=== PATIENT | female | born 1980 | race Caucasian/White ===

== ENCOUNTER 2016-07-29 18:38 | Observation (INO) | payer MEDICAID ==
[2016-07-29] MEDS ORDERED: Sodium Chloride 0.9% 1,000 ML IV STA (18:47)
[2016-07-29 19:03] LABS: BASO # 0.1 K/uL (0.0-0.2); BASO % 0.7 % (0.0-2.0); EOS # 0.1 K/uL (0.0-0.7); EOS % 0.3 % (0.0-4.0); HEMATOCRIT 36.1 % (34.0-47.0); LYMPH % 29.1 % (20.0-40.0); MEAN CELL VOLUME 96.5 fl (81.0-99.0); MEAN CORPUSCULAR HEMOGLOBIN 30.1 pg (27.0-31.0); MEAN CORPUSCULAR HGB CONC 31.2 g/dL (33.0-37.0); MEAN PLATELET VOLUME 8.9 fl (7.2-11.7); MONO # 1.4 K/uL (0.0-0.8); MONO % 8.2 % (0.0-10.0); NEUT # 10.5 K/uL (1.8-7.0); NEUT % 61.7 % (50.0-75.0); RED CELL DISTRIBUTION WIDTH 15.4 % (11.5-14.5); WHITE BLOOD COUNT 17.1 K/uL (4.8-10.8)
[2016-07-29 19:16] LABS: ALB/GLOB RATIO 1.7 (1.0-2.1); ALCOHOL SERUM < 10 mg/dl (0-10); ALKALINE PHOSPHATASE 47 U/L (38-126); ALT/SGPT 21 U/L (9-52); AST/SGOT 35 U/L (14-36); BILIRUBIN,TOTAL 0.4 mg/dl (0.2-1.3); BLOOD UREA NITROGEN 8 mg/dl (7-17); CALCIUM 9.8 mg/dL (8.4-10.2); CARBON DIOXIDE 21 mmol/L (22-30); CHLORIDE 103 mmol/L (98-107); GFR AFRICAN-AMERICAN > 60; GLUCOSE,RANDOM 180 mg/dL (65-105); PHOSPHOROUS 3.5 mg/dl (2.5-4.5); POTASSIUM 3.6 MMOL/L (3.6-5.0); SODIUM 145 mmol/l (132-148); TOTAL PROTEIN 8.6 G/DL (6.3-8.2)
[2016-07-29 19:27] LABS: VALPROIC ACID < 10.0 ug/mL (50.0-100.0)
--- NOTE | 2016-07-29 20:08 | CT ---
EXAM: CT Head Without Intravenous Contrast CLINICAL HISTORY: 35 years old, female; Signs and symptoms; Other: Poss seizure; Additional info: AMS seizure TECHNIQUE: Axial computed tomography images of the head/brain without intravenous contrast. This CT exam was performed using one or more of the following dose reduction techniques: automated exposure control, adjustment of the mA and/or kV according to patient size, and/or use of iterative reconstruction technique. Coronal and sagittal reformatted images were created and reviewed. EXAM DATE/TIME: 07/29/2016 6:46 PM COMPARISON: Prior head CT of 09/22/2012 FINDINGS: BRAIN: No significant acute abnormality identified. No acute hemorrhage seen within the brain. No acute extra-axial fluid collections visualized. No evidence of significant mass effect within the brain. Normal velasquez-white matter differentiation. VENTRICLES: No evidence of significant hydrocephalus. BONES/JOINTS: No acute fractures or other acute bony abnormality noted. SOFT TISSUES: No acute abnormality of the visualized soft tissues is seen. SINUSES: Visualized paranasal sinuses appear clear. MASTOID AIR CELLS: Mastoid air cells appear clear. IMPRESSION: - No acute findings seen within the brain. - See above for remaining findings.
--- NOTE | 2016-07-29 20:26 | ED PDOC ---
HPI: Seizure Time Seen by Provider: 07/29/16 18:50 Chief Complaint (Nursing): Altered Mental Status Chief Complaint (Provider): seizures History Per: EMS History/Exam Limitations: intoxication Additional Complaint(s): Pt brought in agitated and violent. Yelling and cursing nonsensically. Per EMS, pt has 3 episodes of possible seizure, gen tonic clonic, just prior to arrival, all within about 20 minutes of each other, lasting ~2-3 min, but waking up agitated and angry and fighting them almost immediately after the 2 episodes witnessed by them. Unknown history. Past Medical History Reviewed: Unable To Obtain (Obtained from previous charts) Vital Signs: Last Vital Signs Temp 98.3 F 07/30/16 01:15 Pulse 76 07/30/16 01:15 Resp 14 07/30/16 01:15 BP 96/56 L 07/30/16 01:15 Pulse Ox 98 07/30/16 14:52 - Medical History PMH: Anxiety, Bipolar Disorder, Depression - Family History Family History: States: Unknown Family Hx - Immunization History Hx Tetanus Toxoid Vaccination: No Hx Influenza Vaccination: No Hx Pneumococcal Vaccination: No - Home Medications Home Medications: Ambulatory Orders Medication Instructions Recorded Abilify 25 mg PO DAILY 02/21/13 SEROquel 200 mg PO DAILY 02/21/13 Topamax 02/21/13 Wellbutrin 02/21/13 - Allergies Allergies/Adverse Reactions: Allergies Allergy/AdvReac Type Severity Reaction Status Date / Time No Known Allergies Allergy Verified 07/29/16 18:52 Review of Systems Review Of Systems: ROS cannot be obtained secondary to pt's inabilty to answer questions. Physical Exam - Reviewed Nursing Documentation Reviewed: Yes Vital Signs Reviewed: Yes - Physical Exam Appears: Positive for: In Acute Distress (agitated and violent) Head Exam: Positive for: ATRAUMATIC, NORMOCEPHALIC Skin: Positive for: Warm, Dry Eye Exam: Positive for: EOMI, PERRL, Conjunctival injection ENT: Positive for: Other (tacky muc membranes) Neck: Positive for: Supple, Trachea Midline Cardiovascular/Chest: Positive for: Chest Non Tender, Edema, Tachycardia. Negative for: Murmur Respiratory: Negative for: Accessory Muscle Use, Wheezing, Respiratory Distress Gastrointestinal/Abdominal: Positive for: Soft. Negative for: Distended Back: Negative for: Normal Inspection Extremity: Positive for: Normal ROM. Negative for: Deformity Neurologic/Psych: Positive for: Alert (and agitated and violent), Mood/Affect ( extremely agitated, poor concentration, poor thought process, pressured speech, nonsensical conversation). Negative for: Oriented, Motor/Sensory Deficits, Facial Droop - Laboratory Results Result Diagrams: 07/29/16 18:50 07/29/16 18:50 - ECG ECG: Positive for: Interpreted By Ut ECG Rhythm: Positive for: Normal QRS, Normal ST Segment, Sinus Rhythm O2 Sat by Pulse Oximetry: 98 Pulse Ox Interpretation: Normal - Progress ED Course And Treament: On arrival, pt was so agitated and violent, required physical control and medication for acute psychosis. 1:1, Ativan, and 4pt restrains ordered Pt placed in observation due to possible intoxication (drug or alcohol) and encephalopathy and need to be medicated to sedation. Goal would be for reassessments and appropriate disposition based on changes of mental status. Reviewed previous charts. There appears to be h/o drug abuse. 9p Pt sleeping comfortably. Restraints had been removed. Accession No. : [id number] Patient Name / ID : WICHO DURAN / [id number] Exam Date : 07/29/2016 19:40:28 ( Approved ) Study Comment : Sex / Age : F / 35Y Creator : Fouzia Camacho MD Dictator : Plate Finisher : Web Content Specialist : Fouzia Camacho MD Approver2 : Report Date : 07/29/2016 20:07:00 My Comment : [facility] Division of Radiology [address] [place] [address] Tel. no. Patient Name: RENEE SANDS Pt. [address]: [address] [place] [address]. Rec #: [id number] [place] [address]: Jaun MONTANO ,Madina Walsh Pt Order Location: [facility] : 1980 Female Age: 35 Order #: [id number] Reason for exam: ams seizure CT Scan HEAD W/O CONTRAST Exam Date: 07/29/16 This imaging exam was performed at [facility] EXAM: CT Head Without Intravenous Contrast CLINICAL HISTORY: 35 years old, female; Signs and symptoms; Other: Poss seizure; Additional info: AMS seizure TECHNIQUE: Axial computed tomography images of the head/brain without intravenous contrast. This CT exam was performed using one or more of the following dose reduction techniques: automated exposure control, adjustment of the mA and/or kV according to patient size, and/or use of iterative reconstruction technique. Coronal and sagittal reformatted images were created and reviewed. EXAM DATE/TIME: 07/29/2016 6:46 PM COMPARISON: Prior head CT of 09/22/2012 FINDINGS: BRAIN: No significant acute abnormality identified. No acute hemorrhage seen within the brain. No acute extra-axial fluid collections visualized. No evidence of significant mass effect within the brain. Normal velasquez-white matter differentiation. VENTRICLES: No evidence of significant hydrocephalus. BONES/JOINTS: No acute fractures or other acute bony abnormality noted. SOFT TISSUES: No acute abnormality of the visualized soft tissues is seen. SINUSES: Visualized paranasal sinuses appear clear. MASTOID AIR CELLS: Mastoid air cells appear clear. IMPRESSION: - No acute findings seen within the brain. - See above for remaining findings. Dictated By: Fouzia Camacho MD Dictated Date/Time: 07/29/162006 Signed By: Fouzia Camacho MD Date Signed: 2006 Transcribed By: MILLIE Transcribe Date/Time : 07/29/162006 [facility]/ROBERTD 1130p Labs c/w seizure and drug abuse. Pt sleeping and arousable to stimuli 12am Endorsed to Dr Quiroz pending sobriety and final ER disposition - Critical Care Total Time (In Min): 30 Documented Critical Care: Time excludes all time spent performint seperately billable procedures Disposition - Clinical Impression Clinical Impression: Polysubstance abuse - Disposition Disposition: Transfer of Care Disposition Time: 19:00 Condition: STABLE Patient Signed Over To: Rick King
[2016-07-29] MEDS ORDERED: Dextrose 5%/Lactated Ringer's 1,000 ML IV SCH (21:30)
--- NOTE | 2016-07-30 00:13 | ED PDOC ---
- Laboratory Results Result Diagrams: 07/29/16 18:50 07/29/16 18:50 - ECG O2 Sat by Pulse Oximetry: 98 Medical Decision Making Medical Decision Making: Patient s/o from Dr. Zamorano at 0000 pending labs and re-eval. 0400: Patient AAOx3 ambulating with steady gait and clear speech and stable for d/c. Dx: polysubstance abuse stable Scribe Attestation: Documented by Kimber Yeung acting as a scribe for Rick King MD. Provider Scribe Attestation: All medical record entries made by the Scribe were at my direction and personally dictated by me. I have reviewed the chart and agree that the record accurately reflects my personal performance of the history, physical exam, medical decision making, and the department course for this patient. I have also personally directed, reviewed, and agree with the discharge instructions and disposition. Disposition - Clinical Impression Clinical Impression: Polysubstance abuse - POA Present On Arrival: None - Disposition Disposition: Routine/Home Disposition Time: 18:48 Condition: STABLE
[2016-07-30 01:16] VITALS: BP 96/56; PULSE 76; RESP 14; TEMP 98.3
[2016-07-30 02:10] VITALS: O2SAT 98
--- NOTE | 2016-07-30 15:38 | CARD ---
APPROVED REPORT EKG Measurement Heart [id number] [place] 122P13 [id number] <Conclusion> Normal sinus rhythm Normal ECG
== END 2016-07-30 03:46 | disposition home or self-care (01) ==
LOC: H.ER 18:38 → H.EROBSV 18:48
PROVIDERS: ADMIT Emergency Medicine; ATTEND Emergency Medicine
DX: R56.9 Unspecified convulsions (principal); F19.10 Other psychoactive substance abuse, uncomplicated; F31.9 Bipolar disorder, unspecified; F32.9 Major depressive disorder, single episode, unspecified; F41.9 Anxiety disorder, unspecified

== ENCOUNTER 2016-11-04 16:19 | Observation (INO) | payer MEDICAID ==
[2016-11-04 16:27] VITALS: BP 145/93; PULSE 119; RESP 16; TEMP 98; O2SAT 100
--- NOTE | 2016-11-04 16:45 | ED PDOC ---
HPI: Psych/Substance Abuse Time Seen by Provider: 11/04/16 16:33 Chief Complaint (Nursing): Altered Mental Status Chief Complaint (Provider): altered mental status History Per: Other (police ) History/Exam Limitations: no limitations Additional Complaint(s): Dede Aldana is a 35 year old female, with a previous medical history of bipolar disorder and depression, who presents to the ED via police after they found her on the ground shaking and appeared to be intoxicated. Patient admits to using PCP but denies any other medical complaints. PMD: none provided Past Medical History Reviewed: Historical Data, Nursing Documentation, Vital Signs Vital Signs: Last Vital Signs Temp 98.0 F 11/04/16 16:21 Pulse 119 H 11/04/16 16:21 Resp 16 11/04/16 16:21 BP 145/93 H 11/04/16 16:21 Pulse Ox 100 11/04/16 16:21 - Medical History PMH: Anxiety, Bipolar Disorder, Depression - Family History Family History: States: Unknown Family Hx - Immunization History Hx Tetanus Toxoid Vaccination: No Hx Influenza Vaccination: No Hx Pneumococcal Vaccination: No - Home Medications Home Medications: Ambulatory Orders Medication Instructions Recorded Abilify 25 mg PO DAILY 02/21/13 SEROquel 200 mg PO DAILY 02/21/13 Topamax 02/21/13 Wellbutrin 02/21/13 - Allergies Allergies/Adverse Reactions: Allergies Allergy/AdvReac Type Severity Reaction Status Date / Time No Known Allergies Allergy Verified 11/04/16 16:21 Review of Systems ROS Statement: Except As Marked, All Systems Reviewed And Found Negative ( patient denies any medical complaints) Physical Exam - Reviewed Nursing Documentation Reviewed: Yes Vital Signs Reviewed: Yes - Physical Exam Appears: Positive for: Well, Non-toxic, No Acute Distress Head Exam: Positive for: ATRAUMATIC, NORMAL INSPECTION, NORMOCEPHALIC Skin: Positive for: Normal Color, Warm, DRY Eye Exam: Positive for: EOMI, Normal appearance, PERRL ENT: Positive for: Normal ENT Inspection Neck: Positive for: Normal, Painless ROM Cardiovascular/Chest: Positive for: Regular Rate, Rhythm, Tachycardia Respiratory: Positive for: CNT, Normal Breath Sounds Gastrointestinal/Abdominal: Positive for: Normal Exam, Bowel Sounds, Soft Back: Positive for: Normal Inspection Extremity: Positive for: Normal ROM Neurologic/Psych: Positive for: Alert, Oriented, Mood/Affect (agitated and confused ) - Laboratory Results Result Diagrams: 11/04/16 16:57 11/04/16 16:57 - ECG O2 Sat by Pulse Oximetry: 100 (RA) Pulse Ox Interpretation: Normal Medical Decision Making Medical Decision Making: Initial Impression: substance abuse and possible seizure related to PCP use. Initial Plan: * labs * EKG * CT head w/o contrast * alcohol serum * urine drug screen * HCG qualitative * reevaluation 18:00 Patient placed in ED observation to monitor for substance sobriety. Scribe Attestation: Documented by Pati Reyes and Julieta Cavazos, acting as scribes for Dr. Apurva Sampson MD. Provider Scribe Attestation: All medical record entries made by the Scribe were at my direction and personally dictated by me. I have reviewed the chart and agree that the record accurately reflects my personal performance of the history, physical exam, medical decision making, and the department course for this patient. I have also personally directed, reviewed, and agree with the discharge instructions and disposition. ED OBSERVATION Date of observation admission: 11/04/16 Time of observation admission: 18:00 - Observation admission statement Patient is being placed in observation because:: Substance abuse - Goals of Observation Goals of observation are:: Monitor for substance sobriety - Progress Note Progress Note: 11/04/16 18:41 Pt is stable. Sleeping comfortably. No complains. Tachycardia improved. Disposition - Clinical Impression Clinical Impression: Polysubstance abuse, Altered mental status - Patient ED Disposition Is Patient to be Admitted: Transfer of Care - Disposition Disposition: Transfer of Care Disposition Time: 19:00 Condition: FAIR Patient Signed Over To: Taiwo Wynne
[2016-11-04 17:04] LABS: BASO % 0.3 % (0.0-2.0); EOS % 0.1 % (0.0-4.0); HEMATOCRIT 38.1 % (34.0-47.0); LYMPH # 3.1 K/uL (1.0-4.3); LYMPH % 18.8 % (20.0-40.0); MEAN CELL VOLUME 95.4 fl (81.0-99.0); MEAN CORPUSCULAR HGB CONC 31.4 g/dL (33.0-37.0); MEAN PLATELET VOLUME 9.3 fl (7.2-11.7); MONO # 0.5 K/uL (0.0-0.8); MONO % 3.2 % (0.0-10.0); NEUT # 12.7 K/uL (1.8-7.0); NEUT % 77.6 % (50.0-75.0); RED CELL DISTRIBUTION WIDTH 15.5 % (11.5-14.5); WHITE BLOOD COUNT 16.3 K/uL (4.8-10.8)
[2016-11-04 17:14] LABS: ALB/GLOB RATIO 1.5 (1.0-2.1); ALCOHOL SERUM < 10 mg/dl (0-10); ALKALINE PHOSPHATASE 46 U/L (38-126); ALT/SGPT 16 U/L (9-52); AST/SGOT 21 U/L (14-36); BILIRUBIN,TOTAL 0.5 mg/dl (0.2-1.3); BLOOD UREA NITROGEN 10 mg/dl (7-17); CALCIUM 10.3 mg/dL (8.4-10.2); CARBON DIOXIDE 15 mmol/L (22-30); CHLORIDE 108 mmol/L (98-107); GFR AFRICAN-AMERICAN > 60; GLUCOSE,RANDOM 126 mg/dL (65-105); POTASSIUM 4.3 MMOL/L (3.6-5.0); SODIUM 149 mmol/l (132-148); TOTAL PROTEIN 8.4 G/DL (6.3-8.2)
[2016-11-04] MEDS ORDERED: Sodium Chloride 0.9% 1,000 ML IV STA (18:23)
--- NOTE | 2016-11-04 20:13 | ED PDOC ---
- Laboratory Results Result Diagrams: 11/04/16 16:57 11/04/16 16:57 - ECG O2 Sat by Pulse Oximetry: 100 (RA) Pulse Ox Interpretation: Normal Medical Decision Making Medical Decision Makin:00 Patient signed out to me from Dr. Sampson. Substance sobriety pending. Disposition Counseled Patient/Family Regarding: Diagnosis - Clinical Impression Clinical Impression: Polysubstance abuse, Altered mental status - POA Present On Arrival: None - Disposition Disposition: Routine/Home Disposition Time: 21:30 Condition: FAIR ED OBSERVATION Date of observation admission: 11/04/16 Time of observation admission: 19:00 - Observation admission statement Patient is being placed in observation because:: Substance abuse - Goals of Observation Goals of observation are:: Substance sobriety - Progress Note Progress Note: 11/04/16 20:15 Patient's condition remains stable. Pending CT scan and clinical sobriety. 11/04/16 21:30 Patient is awake and alert. Stable for discharge. Scribe Attestation: Documented by Julieta Cavazos, acting as a scribe for Taiwo Wynne MD. Provider Scribe Attestation: All medical record entries made by the Scribe were at my direction and personally dictated by me. I have reviewed the chart and agree that the record accurately reflects my personal performance of the history, physical exam, medical decision making, and the department course for this patient. I have also personally directed, reviewed, and agree with the discharge instructions and disposition. 11/04/16 21:36
--- NOTE | 2016-11-04 20:15 | CT ---
EXAM: CT Head Without Intravenous Contrast EXAM DATE/TIME: 11/04/2016 4:37 PM CLINICAL HISTORY: 35 years old, female; Signs and symptoms; Other: Possible seizure TECHNIQUE: Axial computed tomography images of the head/brain without intravenous contrast. All CT scans at this facility use one or more dose reduction techniques, viz.: automated exposure control; ma/kV adjustment per patient size (including targeted exams where dose is matched to indication; i.e. head); or iterative reconstruction technique. Coronal and sagittal reformatted images were created and reviewed. COMPARISON: Prior head CT of 07/29/2016 FINDINGS: LIMITATIONS: Mild streak/motion artifact. BRAIN: No significant acute abnormality identified. No acute hemorrhage seen within the brain. No acute extra-axial fluid collections visualized. No evidence of significant mass effect within the brain. Normal velasquez-white matter differentiation. VENTRICLES: No evidence of significant hydrocephalus. BONES/JOINTS: No acute fractures or other acute bony abnormality noted. SOFT TISSUES: No acute abnormality of the visualized soft tissues is seen. SINUSES: Visualized paranasal sinuses appear clear. MASTOID AIR CELLS: Mastoid air cells appear clear. IMPRESSION: - No acute findings seen within the brain. - See above for remaining findings.
--- NOTE | 2016-11-05 10:43 | CARD ---
APPROVED REPORT EKG Measurement Heart [id number] [place] 118P41 [id number] <Conclusion> Sinus tachycardia Otherwise normal ECG
== END 2016-11-04 21:34 | disposition home or self-care (01) ==
LOC: H.ER 16:19 → H.EROBSV 18:05
PROVIDERS: ADMIT Emergency Medicine; ATTEND Emergency Medicine
DX: F16.129 Hallucinogen abuse with intoxication, unspecified (principal); F31.9 Bipolar disorder, unspecified; F41.9 Anxiety disorder, unspecified
CPT/HCPCS: 70450; 80053; 80320; 80324; 80345; 80346; 80349; 80353; 80358; 80361; 81025; 82948; 83992; 84703; 85025; 93005; 96374; 99285; G0378; J2060; J7040

== ENCOUNTER 2016-12-23 18:18 | Emergency (ER) | payer MEDICAID ==
[2016-12-23 18:28] VITALS: TEMP 98
--- NOTE | 2016-12-23 19:01 | ED PDOC ---
HPI: Psych/Substance Abuse Time Seen by Provider: 12/23/16 18:29 Chief Complaint (Nursing): Substance Abuse Chief Complaint (Provider): ?substance abuse Additional Complaint(s): 36yo F in ED for eval -was [place] Police [place] with [place] and falling to floor without witnessed head injury-admits in ER that she took PCP and does so regularly. PT admits only to PCP use. denies alcohol abuse . denies head injury Past Medical History Reviewed: Historical Data, Nursing Documentation, Vital Signs Vital Signs: Last Vital Signs Temp 98.0 F 12/23/16 18:25 Pulse 98 H 12/23/16 18:25 Resp 16 12/23/16 18:25 BP Pulse Ox 100 12/23/16 18:25 - Medical History PMH: Anxiety, Bipolar Disorder, Depression - Family History Family History: States: Unknown Family Hx - Immunization History Hx Tetanus Toxoid Vaccination: No Hx Influenza Vaccination: No Hx Pneumococcal Vaccination: No - Home Medications Home Medications: Ambulatory Orders Medication Instructions Recorded Abilify 25 mg PO DAILY 02/21/13 SEROquel 200 mg PO DAILY 02/21/13 Topamax 02/21/13 Wellbutrin 02/21/13 - Allergies Allergies/Adverse Reactions: Allergies Allergy/AdvReac Type Severity Reaction Status Date / Time No Known Allergies Allergy Verified 11/04/16 16:21 Review of Systems ROS Statement: Except As Marked, All Systems Reviewed And Found Negative Neurological: Negative for: Headache Psych: Negative for: Depression, Psychosis, Suicidal ideation Physical Exam - Reviewed Nursing Documentation Reviewed: Yes Vital Signs Reviewed: Yes - Physical Exam Appears: Positive for: Well (slurred speech, unstable gait. ), Non-toxic, No Acute Distress Head Exam: Positive for: ATRAUMATIC, NORMAL INSPECTION, NORMOCEPHALIC Skin: Positive for: Normal Color, Warm, DRY Eye Exam: Positive for: Normal appearance, EOMI, PERRL Cardiovascular/Chest: Positive for: Regular Rate, Rhythm Respiratory: Positive for: CNT, Normal Breath Sounds Gastrointestinal/Abdominal: Positive for: Normal Exam, Bowel Sounds, Soft Neurologic/Psych: Positive for: Alert, Oriented, Gait (unstable, slow with response to commands but answeres approprietly ) - ECG O2 Sat by Pulse Oximetry: 100 - Progress ED Course And Treament: Orders Category Date Time Status ALCOHOL SERUM Stat Chem 12/23/16 19:34 Uncollected COMP METABOLIC PANEL Stat Chem 12/23/16 19:34 Uncollected DRUG SCREEN, URINE Stat Chem 12/23/16 19:34 Uncollected CBC (WITH DIFFERENTIAL) Stat NADEEM 12/23/16 19:34 Uncollected Disposition - Disposition Forms: [employer] (Lao)
[2016-12-23 21:07] LABS: BASO # 0.1 K/uL (0.0-0.2); BASO % 0.6 % (0.0-2.0); EOS # 0.1 K/uL (0.0-0.7); EOS % 0.6 % (0.0-4.0); HEMATOCRIT 32.6 % (34.0-47.0); LYMPH # 2.8 K/uL (1.0-4.3); LYMPH % 26.5 % (20.0-40.0); MEAN CELL VOLUME 93.9 fl (81.0-99.0); MEAN CORPUSCULAR HEMOGLOBIN 30.2 pg (27.0-31.0); MEAN CORPUSCULAR HGB CONC 32.1 g/dL (33.0-37.0); MEAN PLATELET VOLUME 8.3 fl (7.2-11.7); MONO # 0.7 K/uL (0.0-0.8); MONO % 6.7 % (0.0-10.0); NEUT # 7.1 K/uL (1.8-7.0); NEUT % 65.6 % (50.0-75.0); RED CELL DISTRIBUTION WIDTH 16.6 % (11.5-14.5); WHITE BLOOD COUNT 10.8 K/uL (4.8-10.8)
[2016-12-23 21:41] LABS: ALB/GLOB RATIO 1.5 (1.0-2.1); ALCOHOL SERUM < 10 mg/dl (0-10); ALKALINE PHOSPHATASE 44 U/L (38-126); ALT/SGPT 33 U/L (9-52); AST/SGOT 39 U/L (14-36); BILIRUBIN,TOTAL 0.4 mg/dl (0.2-1.3); BLOOD UREA NITROGEN 13 mg/dl (7-17); CALCIUM 9.6 mg/dL (8.4-10.2); CARBON DIOXIDE 28 mmol/L (22-30); CHLORIDE 104 mmol/L (98-107); GFR AFRICAN-AMERICAN > 60; GLUCOSE,RANDOM 99 mg/dL (65-105); POTASSIUM 3.8 MMOL/L (3.6-5.0); SODIUM 143 mmol/l (132-148); TOTAL PROTEIN 7.8 G/DL (6.3-8.2)
--- NOTE | 2016-12-24 02:56 | ED PDOC ---
- Laboratory Results Result Diagrams: 12/23/16 21:04 12/23/16 21:04 - ECG O2 Sat by Pulse Oximetry: 98 - Progress ED Course And Treament: Case endorsed to race and sports book writer from Alan OATES pending labs, re-eval 21:30 Patient awake, no acute complaints 23:00 Patient awake, no acute complaints [place]/juice given 12/24/16 00:30 Patient awake, no acute complaints 2:00 Patient awake, no acute complaints 3:00 Patient requesting to leave, ambulating steady gait. No acute complaints. Stable for discharge Disposition - Clinical Impression Clinical Impression: PCP abuse - POA Present On Arrival: None - Disposition Disposition: Routine/Home Disposition Time: 02:56 Condition: STABLE Instructions: Polysubstance Abuse (ED)
[2016-12-24 03:15] VITALS: BP 117/84; PULSE 80; RESP 18; O2SAT 100
== END 2016-12-24 03:10 | disposition home or self-care (01) ==
LOC: H.ER 18:18
DX: F16.10 Hallucinogen abuse, uncomplicated (principal); F31.9 Bipolar disorder, unspecified; F41.9 Anxiety disorder, unspecified

== ENCOUNTER 2017-04-08 10:59 | Emergency (ER) | payer MEDICAID ==
[2017-04-08 10:59] VITALS: BMI 25.0
--- NOTE | 2017-04-08 12:39 | ED PDOC ---
HPI: Psych/Substance Abuse Time Seen by Provider: 04/08/17 12:00 Chief Complaint (Nursing): Substance Abuse Chief Complaint (Provider): Substance Abuse/Suicidal Ideation History Per: Patient Onset/Duration Of Symptoms: Hrs Modifying Factor(s): Other (PCP) Additional Complaint(s): Dede Aldana is a 36 year old female that was referred to the ED by her psychiatrist for suicidal ideations. Patient reports that she was having a routine visit with her psychiatrist earlier today when he referred her to the ED. Patient denies having any suicidal ideations in the past, or any currently, but her mother states that she had a suicidal attempt two years ago. Patient denies any complaints at this time, and denies homicidal ideations. She reports that she is "feeling well." Of Note: Patient states that she did PCP today. Past Medical History Reviewed: Historical Data, Nursing Documentation, Vital Signs Vital Signs: Last Vital Signs Temp 98.8 F 04/08/17 11:07 Pulse 97 H 04/08/17 11:07 Resp 16 04/08/17 11:07 BP 152/102 H 04/08/17 11:07 Pulse Ox 100 04/08/17 11:07 - Medical History PMH: Anxiety, Bipolar Disorder, Depression, Fibromyalgia - Surgical History Surgical History: No Surg Hx - Family History Family History: States: Unknown Family Hx - Immunization History Hx Tetanus Toxoid Vaccination: No Hx Influenza Vaccination: No Hx Pneumococcal Vaccination: No - Home Medications Home Medications: Ambulatory Orders Medication Instructions Recorded Topamax 100 mg PO BID 02/21/13 Lisdexamfetamine Dimesylate 30 mg PO DAILY 01/30/17 [Vyvanse] - Allergies Allergies/Adverse Reactions: Allergies Allergy/AdvReac Type Severity Reaction Status Date / Time latex Allergy Verified 01/30/17 15:49 Review of Systems ROS Statement: Except As Marked, All Systems Reviewed And Found Negative Psych: Negative for: Suicidal ideation (denies SI or HI) Physical Exam - Reviewed Nursing Documentation Reviewed: Yes Vital Signs Reviewed: Yes - Physical Exam Appears: Positive for: Non-toxic, No Acute Distress Skin: Positive for: Normal Color, Warm Eye Exam: Positive for: EOMI, Normal appearance, PERRL Neck: Positive for: Normal, Supple Cardiovascular/Chest: Positive for: Regular Rate, Rhythm. Negative for: Murmur Respiratory: Positive for: Normal Breath Sounds. Negative for: Wheezing Gastrointestinal/Abdominal: Positive for: Normal Exam, Soft. Negative for: Tenderness Back: Positive for: Normal Inspection. Negative for: L CVA Tenderness, R CVA Tenderness Extremity: Positive for: Normal ROM. Negative for: Deformity, Swelling Neurologic/Psych: Positive for: Alert, Oriented. Negative for: Motor/Sensory Deficits - Laboratory Results Result Diagrams: 04/08/17 19:12 04/08/17 19:12 - ECG O2 Sat by Pulse Oximetry: 100 (RA) Pulse Ox Interpretation: Normal Medical Decision Making Medical Decision Making: Impression: Psychiatric Evaluation Plan: * Alcohol Serum * Urine Drug Screen * 1:1 Observation * Crisis Evaluation * Reevaluation Time: 19:00 [address] over to Dr. King pending crisis evaluation. Scribe Attestation: Documented by Ruth Cruz, acting as a scribe for Apurva Flanagan MD. Provider Scribe Attestation: All medical record entries made by the Scribe were at my direction and personally dictated by me. I have reviewed the chart and agree that the record accurately reflects my personal performance of the history, physical exam, medical decision making, and the department course for this patient. I have also personally directed, reviewed, and agree with the discharge instructions and disposition. Disposition - Clinical Impression Clinical Impression: Bipolar 1 disorder - Patient ED Disposition Is Patient to be Admitted: Transfer of Care Counseled Patient/Family Regarding: Studies Performed, Diagnosis - Disposition Disposition: Discharged to Psych Hospital Disposition Time: 19:00 Condition: STABLE Patient Signed Over To: Rick King Handoff Comments: pending crisis eval
[2017-04-08 14:58] LABS: BARBITURATES, UR NEGATIVE (NEGATIVE); BENZODIAZEPINES, UR NEGATIVE (NEGATIVE); OPIATES, UR NEGATIVE (NEGATIVE); PHENCYCLIDINE, UR POSITIVE (NEGATIVE)
--- NOTE | 2017-04-08 19:20 | ED PDOC ---
- Laboratory Results Result Diagrams: 04/08/17 19:12 04/08/17 19:12 - ECG O2 Sat by Pulse Oximetry: 100 (RA) Medical Decision Making Medical Decision Making: Time: 19:00 Patient signed over to me by Dr. Sampson pending crisis evaluation. Time: 19:30 --Patient was referred to [facility] for involuntary screening Time: 04:38 --Patient was evaluated by [facility] screeners and accepted for transfer into the service of Dr. Mckeon at [facility] Chest x-ray shows no active disease, Patient is medically stable for voluntary psychiatric admission. Diagnosis is bipolar disorder. Scribe Attestation: Documented by Ashok Velazquez, acting as a scribe for Rick King MD. Provider Scribe Attestation: All medical record entries made by the Scribe were at my direction and personally dictated by me. I have reviewed the chart and agree that the record accurately reflects my personal performance of the history, physical exam, medical decision making, and the department course for this patient. I have also personally directed, reviewed, and agree with the discharge instructions and disposition. Disposition - Clinical Impression Clinical Impression: Bipolar 1 disorder - POA Present On Arrival: None - Disposition Disposition: Routine/Home Disposition Time: 04:41 Condition: FAIR Forms: [facility] ([place])
[2017-04-08 19:28] LABS: BASO # 0.1 K/uL (0.0-0.2); BASO % 0.8 % (0.0-2.0); EOS # 0.1 K/uL (0.0-0.7); EOS % 0.6 % (0.0-4.0); HEMOGLOBIN 11.7 g/dL (12.0-16.0); LYMPH # 3.6 K/uL (1.0-4.3); LYMPH % 32.7 % (20.0-40.0); MEAN CELL VOLUME 94.5 fl (81.0-99.0); MEAN CORPUSCULAR HEMOGLOBIN 31.2 pg (27.0-31.0); MEAN PLATELET VOLUME 9.2 fl (7.2-11.7); MONO # 0.9 K/uL (0.0-0.8); MONO % 8.2 % (0.0-10.0); NEUT # 6.3 K/uL (1.8-7.0); NEUT % 57.7 % (50.0-75.0); NRBC % 0.1 % (0.0-0.0); RBC 3.75 Mil/uL (3.80-5.20); RED CELL DISTRIBUTION WIDTH 15.8 % (11.5-14.5); WHITE BLOOD COUNT 10.9 K/uL (4.8-10.8)
[2017-04-08 19:40] LABS: ALB/GLOB RATIO 1.4 (1.0-2.1); ALBUMIN 4.7 g/dL (3.5-5.0); ALT/SGPT 19 U/L (9-52); AST/SGOT 21 U/L (14-36); BLOOD UREA NITROGEN 10 mg/dl (7-17); CALCIUM 10.1 mg/dL (8.4-10.2); GFR AFRICAN-AMERICAN > 60; GFR NON-AFRICAN AMERICAN > 60
[2017-04-08 20:31] LABS: ACETAMINOPHEN < 10.0 ug/ml (10.0-30.0); SALICYLATE < 1.0 mg/dl
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
--- NOTE | 2017-04-09 11:38 | RAD ---
HISTORY: admit COMPARISON: Chest radiograph 03/31/2012. FINDINGS: LUNGS: Somewhat diminished inspiratory effort. No acute infiltrates bilaterally. PLEURA: No significant pleural effusion identified, no pneumothorax apparent. CARDIOVASCULAR: Normal. OSSEOUS STRUCTURES: No significant abnormalities. VISUALIZED UPPER ABDOMEN: Normal. OTHER FINDINGS: None. IMPRESSION: No acute infiltrates, pleural effusion or pneumothorax bilaterally. Diminished history effort. No additional interval change appreciable.
--- NOTE | 2017-04-09 15:47 | ED PDOC ---
- Laboratory Results Result Diagrams: 04/08/17 19:12 04/08/17 19:12 - ECG O2 Sat by Pulse Oximetry: 100 Pulse Ox Interpretation: Normal Medical Decision Making Medical Decision Making: Time: 154 --Patient is admitted to [facility]. Scribe Attestation: Documented by Holly Tavares, acting as a scribe for Pati Robles MD. Provider Scribe Attestation: All medical record entries made by the Scribe were at my direction and personally dictated by me. I have reviewed the chart and agree that the record accurately reflects my personal performance of the history, physical exam, medical decision making, and the department course for this patient. I have also personally directed, reviewed, and agree with the discharge instructions and disposition. Disposition - Clinical Impression Clinical Impression: Bipolar 1 disorder - POA Present On Arrival: None - Disposition Disposition: Other Institution (Transferred to [facility] for admission) Disposition Time: 15:46 Condition: STABLE
--- NOTE | 2017-04-09 19:14 | ED PDOC ---
- Laboratory Results Result Diagrams: 04/08/17 19:12 04/08/17 19:12 - ECG O2 Sat by Pulse Oximetry: 99 (RA) Pulse Ox Interpretation: Normal - Critical Care Total Time (In Min): 30 Medical Decision Making Medical Decision Making: Time: 1900 --Patient endorsed from Dr. Robles to me. --Pending [facility] bed availability. 0255 Patient is agitated, uncooperative, and at high risk for elopement, necessitating the use of 4 point restraints, Haldol, and Ativan. 0700 Patient will be signed out to Dr. Godinez pending [facility] bed availability. Scribe Attestation: Documented by Holly Tavares and Ghazal Singh, acting as a scribe for Rick King MD. Provider Scribe Attestation: All medical record entries made by the Scribe were at my direction and personally dictated by me. I have reviewed the chart and agree that the record accurately reflects my personal performance of the history, physical exam, medical decision making, and the department course for this patient. I have also personally directed, reviewed, and agree with the discharge instructions and disposition. Disposition - Clinical Impression Clinical Impression: Bipolar 1 disorder - Disposition Disposition: Transfer of Care Disposition Time: 07:00 Condition: FAIR Forms: [facility] (Rom[place]) Patient Signed Over To: Odalys Godinez Handoff Comments: pending [facility] bed availability
[2017-04-10 11:12] VITALS: RESP 18
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
[2017-04-10 13:48] VITALS: TEMP 98
[2017-04-10 14:58] VITALS: BP 119/90; PULSE 98
--- NOTE | 2017-04-10 18:12 | CARD ---
APPROVED REPORT EKG Measurement Heart [id number] FL [id number] [id number] <Conclusion> Normal sinus rhythm Normal ECG
[2017-04-11 17:12] VITALS: O2SAT 100
== END 2017-04-10 14:58 | disposition short-term general hospital (02) ==
LOC: H.ER 10:59
DX: F31.9 Bipolar disorder, unspecified (principal); Z00.8 Encounter for other general examination; Z91.14 Patient's other noncompliance with medication regimen; Z91.19 Patient's noncompliance with other medical treatment and regimen; Z86.59 Personal history of other mental and behavioral disorders
CPT/HCPCS: 80053; 80320; 80324; 80329; 80345; 80346; 80349; 80353; 80358; 80361; 81025; 83992; 85025; 93005; 96372; 99285; J1630; J2060

== ENCOUNTER 2017-11-19 21:07 | Emergency (ER) | payer MEDICARE, MEDICAID ==
[2017-11-19 21:07] VITALS: BMI 25.0
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
[2017-11-19 23:01] LABS: BARBITURATES, UR NEGATIVE (NEGATIVE); BENZODIAZEPINES, UR NEGATIVE (NEGATIVE); OPIATES, UR NEGATIVE (NEGATIVE); PHENCYCLIDINE, UR POSITIVE (NEGATIVE)
[2017-11-19 23:58] VITALS: BP 128/82; PULSE 69; RESP 19; TEMP 97.6
[2017-11-20 00:32] VITALS: O2SAT 100
== END 2017-11-19 23:45 | disposition home or self-care (01) ==
LOC: H.ER 21:07
DX: F16.10 Hallucinogen abuse, uncomplicated (principal); F31.9 Bipolar disorder, unspecified; F41.9 Anxiety disorder, unspecified; M79.7 Fibromyalgia
CPT/HCPCS: 82948; 99283; G0480